=== PATIENT | female | born 1975 | race Caucasian/White ===

== ENCOUNTER 2017-05-18 07:59 | Outpatient (CLI) | payer BC ==
--- NOTE | 2017-05-18 09:48 | MMO ---
BILATERAL SCREENING MAMMOGRAM: Date: 05/18/17 HISTORY: 42-year-old female. Baseline exam for routine screening mammography. COMPARISON: None. Baseline mammogram. TECHNIQUE: CC and MLO views of both breasts are submitted for interpretation. This patient's mammogram was reviewed with the assistance of computer-aided detection. FINDINGS: The breasts are composed of heterogeneously dense fibroglandular tissue, which limits the sensitivity of mammography in the detection of underlying malignancy. Bilaterally, no suspicious dominant mass, architectural distortion, or suspicious calcification. IMPRESSION: BIRADS 1: Negative RECOMMENDATION: Annual mammogram. POS: [facility]
== END 2017-05-18 08:00 | disposition home or self-care (01) ==
LOC: SCSMAMMO 07:59
PROVIDERS: ATTEND Family Medicine
DX: Z12.31 Encounter for screening mammogram for malignant neoplasm of breast (principal)
CPT/HCPCS: 77067

== ENCOUNTER 2018-06-05 08:13 | Outpatient (CLI) | payer BC ==
--- NOTE | 2018-06-05 08:58 | MMO ---
Bilateral MAMMO Bilat Screen [facility]. CLINICAL HISTORY: Patient is 43 years old and is seen for screening. The patient has no family history of breast cancer. The patient has no personal history of cancer. VIEWS: The views performed were: bilateral craniocaudal and bilateral mediolateral oblique. FILMS COMPARED: The present examination has been compared to a prior imaging study performed at [facility] on 05/18/2017. This study has been interpreted with the assistance of computer-aided detection. MAMMOGRAM FINDINGS: The breasts are heterogeneously dense, which could obscure a lesion on mammography. There are no suspicious masses, suspicious calcifications, or new areas of architectural distortion. IMPRESSION: THERE IS NO MAMMOGRAPHIC EVIDENCE OF MALIGNANCY. A ROUTINE FOLLOW-UP MAMMOGRAM IN 1 YEAR IS RECOMMENDED. ACR BI-RADS Category 1 - Negative MAMMOGRAPHY NOTE: 1. A negative mammogram report should not delay a biopsy if a dominant of clinically suspicious mass is present. 2. Approximately 10% to 15% of breast cancers are not detected by mammography. 3. Adenosis and dense breasts may obscure an underlying neoplasm.
== END 2018-06-05 08:14 | disposition home or self-care (01) ==
LOC: SCSMAMMO 08:13
PROVIDERS: ATTEND Family Medicine
DX: Z12.31 Encounter for screening mammogram for malignant neoplasm of breast (principal)
CPT/HCPCS: 77067

== ENCOUNTER 2019-02-18 13:58 | Outpatient (CLI) | payer BC ==
--- NOTE | 2019-02-18 14:28 | ULT ---
Exam: Bilateral renal ultrasound HISTORY: Decreased renal function COMPARISON: None FINDINGS: Right kidney: Normal cortical echotexture. No hydronephrosis. Echogenic focus with shadowing in the u pper pole of the right kidney measuring 0.9 cm, likely a cortical calcification. Right kidney measurements: 5.1 x 4.3 x 10.3 cm. Left kidney: Normal cortical echotexture. No hydronephrosis. Hypoechoic focus in the upper pole the l eft kidney measuring 2.2 x 2.3 x 3.0 cm. Complex cyst is favored. Left kidney measurements 4.3 x 4.0 x 10.0 cm. Urinary bladder: Normal mucosa. IMPRESSION: 1. No hydronephrosis 2. Complex cyst in the upper pole left kidney. Follow-up ultrasound in 6 months is recommended to ens ure stability
== END 2019-02-18 13:59 | disposition home or self-care (01) ==
LOC: SCSULT 13:58
PROVIDERS: ATTEND Family Medicine
DX: N28.9 Disorder of kidney and ureter, unspecified (principal); N28.1 Cyst of kidney, acquired
CPT/HCPCS: 76770

== ENCOUNTER 2021-03-12 08:40 | Outpatient (CLI) | payer BC | END 2021-03-12 08:41 | disposition home or self-care (01) | LOC: ULT 08:40 | PROVIDERS: ATTEND Internal Medicine Nephrology | DX: N18.30 Chronic kidney disease, stage 3 unspecified (principal) | CPT/HCPCS: 76770 ==

== ENCOUNTER 2021-10-07 09:55 | Outpatient (CLI) | payer BC | END 2021-10-07 09:56 | disposition home or self-care (01) | LOC: BICULT 09:55 | PROVIDERS: ATTEND Internal Medicine Nephrology | DX: N28.1 Cyst of kidney, acquired (principal) | CPT/HCPCS: 76770 ==